=== PATIENT | female | born 1965 | race Two or more races ===

== ENCOUNTER 2017-02-23 17:27 | Emergency (ER) | payer OTHER ==
[~2017-02-23] VITALS: Ht 152.4 cm; Wt 83.9 kg
--- NOTE | ~2017-02-23 | US85 ---
[facility] A Service of [facility] RADIOLOGY TEXT RESULTS PATIENT: MAYRA IBRAHIM LOCATION: [place] : 61 UNIT #: [id number] AGE: [address]: Javier Bush DO SEX: F ORDER DR: [id number] [facility] [address] [place], [place] [address] [id number] E MR#: [id number] Acc #: [id number] NAME: MAYRA IBRAHIM : 1965 SEX: F STUDY DATE/TIME: 02/23/2017 18:48 UNIT: [place] ROOM: STUDY DESCRIPTION: [facility] [employer] Attending Physician: Javier Bush D.O. Referring Physician: [facility] Ordering Physician: Beata Patel M.D. Primary Care Physician: [facility] MEDICAL IMAGING REPORT This report is preliminary unless electronic signature is present EXAM Right lower extremity venous duplex 02/23/17 HISTORY Right lower extremity pain for 1 day with burning sensation and right leg for 3 days. Evaluate for deep vein thrombosis. TECHNIQUE Venous ultrasound examination of the right lower extremity was performed using grayscale, spectral Doppler and color flow Doppler imaging. FINDINGS The examination is negative. There is no evidence of right lower extremity deep venous thrombus from the groin to the lower calf. Visualized greater saphenous vein is also patent. IMPRESSION Negative examination. No evidence of right lower extremity deep venous thrombosis. Dictated by... Tl Marin M.D. THIS IS AN ELECTRONICALLY VERIFIED REPORT lT Marin M.D. at 02/24/2017 10:22 AM NIR/velasquez TD: 02/24/2017 08:36 JOB #: [id number] MEDICAL IMAGING REPORT [facility] A Service [facility] RADIOLOGY TEXT RESULTS PATIENT: MAYRA IBRAHIM LOCATION: [place] : 61 UNIT #: [id number] AGE: [address]: Javier Bush DO SEX: F ORDER DR: Page 1 of 1 COPY
--- NOTE | ~2017-02-23 | CR127 ---
[facility] A Service [facility] RADIOLOGY TEXT RESULTS PATIENT: MAYRA IBRAHIM LOCATION: [place] : [birth year] UNIT #: [id number] AGE: [address]: Javier Bush DO SEX: F ORDER DR: [id number] [facility] [address] [place], [place] [address] [id number] E MR#: [id number] Acc #: [id number] NAME: MAYRA IBRAHIM : 1965 SEX: F STUDY DATE/TIME: 02/23/2017 20:47 UNIT: [place] ROOM: STUDY DESCRIPTION: CR Foot Complete Min 3 View Rt Attending Physician: Javier Bush D.O. Referring Physician: [facility] Ordering Physician: Javier Bush D.O. Primary Care Physician: [facility] MEDICAL IMAGING REPORT This report is preliminary unless electronic signature is present EXAM Right foot, 02/23/2017. INDICATION Pain and swelling that began 3 days ago. Wore new shoes. TECHNIQUE Three views of the right foot. COMPARISON No comparisons. FINDINGS Moderate sized calcaneal spur present. The bones are osteoporotic. No acute fracture. Mild degenerative change of the first MTP joint. IMPRESSION Osteoporosis and degenerative change. Calcaneal spur, but no acute fracture. Dictated by... Tarun Diehl M.D. THIS IS AN ELECTRONICALLY VERIFIED REPORT Tarun Diehl M.D. at 02/24/2017 2:17 PM HARI/abhishek TD: 02/24/2017 09:20 JOB #: [id number] MEDICAL IMAGING REPORT [facility] A Service [facility] RADIOLOGY TEXT RESULTS PATIENT: MAYRA IBRAHIM LOCATION: [facility] : 61 UNIT #: [id number] AGE: [address]: Javier Bush DO SEX: F ORDER DR: Page 1 of 1 COPY
[2017-02-23 18:38] LABS: BASOPHIL% 0.4 % (0-2.5); EOSINOPHIL# 0.3 X10e3 (0-0.7); EOSINOPHIL% 2.6 % (0.0-7.0); HEMATOCRIT 41.7 % (35.0-45.0); HEMOGLOBIN 14.2 gm/dL (12.0-16.0); LYMPHOCYTE# 3.1 X10e3 (1.0-3.5); LYMPHOCYTE% 29.3 % (17.0-45.0); MEAN CELL VOLUME 93.1 FL (83-96); MEAN CORPUSCULAR HEMOGLOBIN 31.7 PG (28-34); MEAN PLATELET VOLUME 9.5 FL (6.5-11.5); MONOCYTE# 0.8 X10e3 (0-1.0); MONOCYTE% 7.6 % (3.0-12.0); NEUTROPHIL# 6.3 X10e3 (1.5-7.1); NEUTROPHIL% 60.1 % (40-75); PLATELET COUNT 239 X10e3 (140-420); RED BLOOD COUNT 4.47 X10e (3.90-5.30); WHITE BLOOD COUNT 10.5 X10e3 (4.0-10.5)
[2017-02-23 18:54] LABS: DIFF IND NO
[2017-02-23 18:59] LABS: BUN/CREATININE RATIO 28.57; CALCIUM SERUM 8.8 mg/dL (8.4-10.2); CREATININE SERUM 0.7 mg/dL (0.6-1.4); GLOM FILT RATE Estimated 98.9 mL/min (>60); POTASSIUM 3.8 mmol/L (3.5-5.1)
== END 2017-02-23 22:30 | disposition home or self-care (01) ==
LOC: CED 17:27
PROVIDERS: Emergency Medicine
DX: M79.671 Pain in right foot (principal); L08.9 Local infection of the skin and subcutaneous tissue, unspecified; E11.9 Type 2 diabetes mellitus without complications; I10 Essential (primary) hypertension
CPT/HCPCS: 36415; 73630; 80048; 85025; 85730; 93971; 99284

== ENCOUNTER 2017-02-25 11:55 | Emergency (ER) | payer OTHER ==
[~2017-02-25] VITALS: Ht 152.4 cm; Wt 83.9 kg
--- NOTE | ~2017-02-25 | CT14 ---
[facility] A Service of [facility] RADIOLOGY TEXT RESULTS PATIENT: MAYRA IBRAHIM LOCATION: [employer] : 61 UNIT #: [id number] AGE: [address]: Brooke Cotton MD SEX: F ORDER DR: [id number] [facility] [place], [place] [address] [id number] E MR#: [id number] Acc #: [id number] NAME: MAYRA IBRAHIM : 1965 SEX: F STUDY DATE/TIME: 02/25/2017 16:41 UNIT: [employer] ROOM: STUDY DESCRIPTION: CT Angio Abdomen and Pelvis Attending Physician: Brooke Cotton M.D. Ordering Physician: Brooke Cotton M.D. Primary Care Physician: [facility] MEDICAL IMAGING REPORT This report is preliminary unless electronic signature is present EXAM CTA abdomen and pelvis and bilateral lower extremities. INDICATIONS Right lower extremity pain for 2 days. Peripheral vascular disease. TECHNIQUE CT angiography of the abdomen and pelvis and bilateral lower extremities following administration of 125 mL Isovue-370 IV contrast. Coronal and sagittal 3-D MIP reconstructions were performed. Volume-rendered and surface-rendered reconstructions of the bilateral lower extremities were also obtained. Curved planar reconstructions were reviewed. This CT exam was performed with one or more of the following radiation dose reduction techniques: Automatic exposure control, adjustment of mA and/or kV according to patient size, and iterative reconstruction. COMPARISON None available. FINDINGS Aorta: There is no abdominal aortic aneurysm or dissection. The celiac, SMA, bilateral renal arteries, and the LUCY are patent. There is mild atherosclerotic disease of the proximal right renal artery, however this is not felt to be significant. Both common iliac arteries and the external iliac arteries are widely patent. The internal iliac arteries are patent. There is occlusion of a second order branch of the left internal iliac artery. Right lower extremity: There is mild atherosclerotic disease involving the right common femoral artery and superficial femoral artery. The profunda femoral artery is widely patent. No evidence of a significant stenosis in these areas. The patient has a popliteal artery stent. There [facility] A Service of [facility] RADIOLOGY TEXT RESULTS PATIENT: MAYRA IBRAHIM LOCATION: [employer] : [birth year] UNIT #: [id number] AGE: [address]: Brooke Cotton MD SEX: F ORDER DR: is focal in-stent stenosis of the right popliteal artery with approximately 70% luminal stenosis within the stent. The stenosis is in the middle to distal one-third of the stent. The distal popliteal artery is widely patent. There is three-vessel trifurcation with only mild atherosclerotic disease. The dorsalis pedis is patent at the ankle. The posterior tibial artery is severely atherosclerotic, however, it is patent at the ankle. There is three-vessel runoff. Left lower extremity: The left common femoral artery, femoral artery, and profunda femoral artery are widely patent. There is only mild atherosclerotic disease. The popliteal artery is patent. There is a patent trifurcation with three-vessel runoff. There is atherosclerotic disease noted within the trifurcation vessels. The dorsalis pedis and posterior tibial artery is patent at the ankle. There is a two-vessel runoff. Abdomen: Early arterial phase imaging of the abdomen shows no focal abnormalities. IMPRESSION 1. 70% in-stent stenosis of the mid to distal right popliteal artery. The distal popliteal artery is patent and there is a three-vessel runoff. 2. Mild peripheral vascular disease in the left lower extremity with patent trifurcation, however the mid to distal posterior tibial artery is diseased. The dorsalis pedis and posterior tibialis is patent at the ankle. 3. The abdominal aorta is normal in caliber. Dictated by... Johan Bennett M.D. THIS IS AN ELECTRONICALLY VERIFIED REPORT Johan Bennett M.D. at 02/26/2017 3:57 PM MIMA/roberth TD: 02/26/2017 15:22 JOB #: [id number] MEDICAL IMAGING REPORT Page 1 of 1 COPY
[2017-02-25 15:54] LABS: BASOPHIL# 0.1 X10e3 (0-0.3); BASOPHIL% 0.8 % (0-2.5); EOSINOPHIL# 0.3 X10e3 (0-0.7); EOSINOPHIL% 2.9 % (0.0-7.0); HEMATOCRIT 40.2 % (35.0-45.0); HEMOGLOBIN 14.1 gm/dL (12.0-16.0); LYMPHOCYTE# 2.2 X10e3 (1.0-3.5); LYMPHOCYTE% 23.9 % (17.0-45.0); MEAN CELL VOLUME 91.6 FL (83-96); MEAN CORPUSCULAR HEMOGLOBIN 32.3 PG (28-34); MEAN CORPUSCULAR HGB CONC 35.2 g/dL (30-36); MEAN PLATELET VOLUME 9.4 FL (6.5-11.5); MONOCYTE# 0.6 X10e3 (0-1.0); MONOCYTE% 6.2 % (3.0-12.0); NEUTROPHIL# 6.2 X10e3 (1.5-7.1); NEUTROPHIL% 66.2 % (40-75); PLATELET COUNT 216 X10e3 (140-420); RED BLOOD COUNT 4.39 X10e (3.90-5.30); RED CELL DISTRIBUTION WIDTH 11.9 % (11.0-15.5); WHITE BLOOD COUNT 9.4 X10e3 (4.0-10.5)
[2017-02-25 15:55] LABS: DIFF IND NO
[2017-02-25 16:33] LABS: ALBUMIN SERUM 3.8 g/dL (3.5-5.0); ALKALINE PHOSPHATASE 129 U/L (32-92); ALT (SGPT) 24 U/L (10-40); AST (SGOT) 22 U/L (10-42); BILIRUBIN, DIRECT <0.1 mg/dL (0.0-0.2); BILIRUBIN,INDIRECT 0.4 mg/dL (0.0-0.9); BILIRUBIN,TOTAL 0.5 mg/dL (0.2-2.0); BLOOD UREA NITROGEN 18 mg/dL (9-23); CALCIUM SERUM 8.8 mg/dL (8.4-10.2); CARBON DIOXIDE 24 mmol/L (22-31); CHLORIDE 104 mmol/L (100-111); CPK (CREATINE PHOSPHOKINASE) 56 IU/L (26-140); CREATININE SERUM 0.8 mg/dL (0.6-1.4); GLOM FILT RATE Estimated 84.2 mL/min (>60); GLUCOSE FASTING 128 mg/dL (70-110); POTASSIUM 4.5 mmol/L (3.5-5.1); PROTEIN TOTAL SERUM 7.3 g/dL (6.0-8.3); SODIUM 136 mmol/L (135-145)
== END 2017-02-25 20:15 | disposition home or self-care (01) ==
LOC: CED 11:55
PROVIDERS: Emergency Medicine
DX: I73.9 Peripheral vascular disease, unspecified (principal); E11.9 Type 2 diabetes mellitus without complications; I10 Essential (primary) hypertension; Z95.1 Presence of aortocoronary bypass graft; Z90.49 Acquired absence of other specified parts of digestive tract; Z98.890 Other specified postprocedural states
CPT/HCPCS: 36415; 73706; 74174; 80048; 80076; 82550; 85025; 99284; Q9967